=== PATIENT | female | born 1985 | race Hispanic/Latino ===

== ENCOUNTER → 2021-05-23 | Day surgery (SDC) | payer BC ==
[~2021-05-23] MED LIST: ACETAMINOPHEN-1 EAC4 PO; COQ1050 MG PO; DEXAMETHASONE SOD PHOS INJ 4 MG/ML VIAL ONE; DHEA50 MG PO; GLYCOPYRROLATE INJ 0.2 MG/ML VIAL ONE; LABETALOL HCL200 MG PO; LEVOTHYROXINE50 MCG PO; LIDOCAINE 1% W/EPINEPHRINE 20 ML VIAL ONE; LIDOCAINE HCL 2% LOCAL INJ 5 ML SDV VIAL INJ ONE; MUPIROCIN 2% OINT 22 GM TUBE ONE; NEOSTIGMINE 1 MG/ML 10ML VIAL ONE; NIFEDIPINE10 MG PO; ONDANSETRON HCL INJ 2MG/ML 2ML 2 MG/ML VIAL ONE; PRENATAL PO; PROPOFOL IV EMULSION 10 MG/ML 20 ML VIAL ONE; ROCURONIUM BROMIDE 10 MG/ML 5ML VIAL IV ONE; SEVOFLURANE INHAL SOLN 250 ML PEN BTL ONE; SODIUM CHLORIDE 0.9% 50ML 50 ML ONE; VITAMIN D310 MCG PO
[2021-05-23 09:35] VITALS: BP 112/81
== END | disposition home or self-care (01) ==
LOC: OR 05:59
PROVIDERS: ATTEND Plastic Surgery
DX: K11.6 Mucocele of salivary gland (principal); E66.01 Morbid (severe) obesity due to excess calories; I10 Essential (primary) hypertension; Z01.810 Encounter for preprocedural cardiovascular examination
CPT/HCPCS: 42408; 81025; 88304; 93005; J0690; J1100; J2001; J2405; J2704; J2710